=== PATIENT | female | born 1970 ===

== ENCOUNTER → 2020-03-20 | Outpatient (CLI) | payer OTHER ==
--- NOTE | 2020-03-20 09:32 | RAD ---
EXAM: Cervical spine MRI without contrast. HISTORY: Chronic neck pain. Upper extremity radiculopathy. TECHNIQUE: Multiplanar, multisequence magnetic resonance imaging of the cervical spine was performed without contrast. COMPARISON: None. FINDINGS: There is instrumented anterior spinal fusion and interbody fusion at C5-C6 and C6-C7. There is minimal anterolisthesis of C2 on C3 and straightening of cervical lordosis. There is no fracture or suspicious osseous lesion. The skull base and posterior fossa are unremarkable. No spinal cord lesion is seen. At C2-C3, there is minimal bilateral facet arthropathy. There is no stenosis. At C3-C4, there is endplate remodeling. There is mild right facet arthropathy. There is mild right foraminal stenosis. At C4-C5, there is a posterior central disc protrusion superimposed on a disc bulge and endplate osteophytosis. There is mild to moderate bilateral facet arthropathy. There is bilateral uncovertebral therapy. There is deformation of the spinal cord and moderate central canal stenosis measuring 7.7 mm in anterior posterior dimension. At C5-C6, there is instrumented fusion. There is mild bilateral facet arthropathy. There is minimal right foraminal stenosis. At C6-C7, there is instrumented fusion. There is right posterior lateral predominant endplate remodeling. There is right uncovertebral arthropathy. There is moderate to severe right and mild left foraminal stenosis. There is slight deformation of the cervical spinal cord and mild central canal stenosis measuring 8.0 mm in anterior posterior dimension. IMPRESSION: 1. Instrumented anterior spinal fusion and interbody fusion at C5-C6 and C6-C7. 2. Multilevel degenerative change involving the cervical spine, described in detail above. This is associated with mild right foraminal stenosis at C3-C4, moderate central canal stenosis at C4-C5, minimal right foraminal stenosis at C5-C6 and moderate to severe right and mild left foraminal and mild central canal stenosis at C6-C7. Electronically signed by: Mariely Cox MD (03/20/2020 9:30 AM) [facility]
== END | disposition home or self-care (01) ==
LOC: EEVIPCON 03-19 11:15 → MRI 09:33
PROVIDERS: ATTEND Preventive Medicine Occupational Medicine
DX: M50.121 Cervical disc disorder at C4-C5 level with radiculopathy (principal); M47.22 Other spondylosis with radiculopathy, cervical region; M40.292 Other kyphosis, cervical region; M48.02 Spinal stenosis, cervical region
CPT/HCPCS: 72141